=== PATIENT | male | born 1955 | race Caucasian/White ===

== ENCOUNTER 2019-06-16 16:45 | Emergency (ER) | payer MEDICAID ==
[~2019-06-16] VITALS: Ht 175.3 cm; Wt 56.7 kg
--- NOTE | 2019-06-16 16:46 | NUR ---
Patient TONO PYLE from [facility] [place], transferred to bed 10. RN evaluating patient at bedside.
[2019-06-16 16:49] VITALS: BP 152/94
--- NOTE | 2019-06-16 16:49 | NUR ---
Dr. Carrion is evaluating the patient at bedside.
--- NOTE | 2019-06-16 16:50 | NUR ---
XAVIERA BLS FROM [facility] TO RULE OUT APPENDICITIS. PT PRESENTS WITH RUQ AND RT RIB TENDERNESS/PAIN 02/22. BOWEL SOUNDS ACTIVE IN ALL 4 QUADRANTS. ABDOMEN SOFT AND FLAT. CRACKLES BILATERALLY AT LOWER BASE. DENIES N/V/D, PT AFEBRILE, INCONTINENT, NON-AMBULATORY. ALL 4 EXTREMETIES CONTRACTED. DAUGHTER BEDSIDE. VS STABLE. PT ALERT AND AWAKE. BED IS DOWN, LOCKED, BED RAIL X 2. MEDHX: CVA, HEMIPLEGIA, HEMIPARESIS, DYSPHAGIA, CHF, RT CRANIOTOMY, DM, HTN
--- NOTE | 2019-06-16 16:51 | NUR ---
MORE PMH-L SIDED HEMIPLEGIA AND CONVULSIONS
[2019-06-16] MEDS ORDERED: NACL 0.9% 1,000 ML IV SCH (16:55)
--- NOTE | 2019-06-16 16:59 | NUR ---
XRAY AT BEDSIDE
--- NOTE | 2019-06-16 17:08 | NUR ---
LAB AT BEDSIDE
--- NOTE | 2019-06-16 17:10 | NUR ---
US AT BEDSIDE
[2019-06-16 17:39] LABS: BASOPHILS % (AUTO) 0.5 % (0.0-2.0); EOSINOPHILS # (AUTO) 0.2 K/uL (0-0.4); EOSINOPHILS % (AUTO) 2.5 % (0.0-4.0); HEMATOCRIT 40.3 % (36-52); LYMPHOCYTES # (AUTO) 1.9 K/uL (2.0-11.5); LYMPHOCYTES % (AUTO) 21.5 % (20.5-51.1); MEAN CORPUSCULAR HEMOGLOBIN 30 pg (27-31); MEAN CORPUSCULAR HGB CONC 32 g/dL (33-37); MEAN CORPUSCULAR VOLUME 93.9 fL (80-94); MONOCYTES # (AUTO) 0.6 K/uL (0.8-1.0); MONOCYTES % (AUTO) 7.3 % (1.7-9.3); NEUTROPHILS % (AUTO) 68.2 % (42.2-75.2); PLATELET COUNT (AUTO) 213 K/uL (140-450); RED BLOOD CELL COUNT(AUTO) 4.29 MIL/uL (4.20-6.10); RED CELL DISTRIBUTION WIDTH 14.3 % (11.6-13.7); WHITE BLOOD COUNT (AUTO) 8.7 K/uL (4.8-10.8)
--- NOTE | 2019-06-16 18:05 | NUR ---
EMT AT BEDSIDE FOR EKG
[2019-06-16 18:06] LABS: ANION GAP 8.7 (8-16); CARBON DIOXIDE 31.8 mmol/L (21-32); CREATININE 0.8 mg/dL (0.7-1.3); POTASSIUM 4.5 mmol/L (3.5-5.1)
[2019-06-16 18:07] LABS: PROTHROMBIN TIME 9.7 secs (10.8-13.4)
[2019-06-16 18:09] LABS: ALBUMIN 2.3 g/dL (3.4-5.0); TOTAL BILIRUBIN 0.3 mg/dL (0.0-1.0)
--- NOTE | 2019-06-16 18:18 | NUR ---
# 14 FR Urinary catheter inserted utilizing sterile technique BY STUDENTS AND INSTRUCTOR. Immediate return of 300 ml YELLOW urine noted. Urine sample collected and sent to lab.
--- NOTE | 2019-06-16 18:36 | NUR ---
NADR TO BOLUS. 500 ML STILL TO ADMINISTER
--- NOTE | 2019-06-16 18:43 | NUR ---
TEMP 99.5 AXILLARY
[2019-06-16 18:44] LABS: APPEARANCE,URINE CLEAR (CLEAR); BILIRUBIN,URINE NEGATIVE (NEGATIVE); BLOOD, URINE NEGATIVE (NEGATIVE); COLOR,URINE YELLOW (YELLOW); LEUKOCYTE ESTERASE ,URINE NEGATIVE (NEGATIVE); NITRITE, URINE NEGATIVE (NEGATIVE); PH,URINE 6.5 (5.0-9.0); UGLUCOSE TRACE (NEGATIVE)
--- NOTE | 2019-06-16 18:47 | NUR ---
PTS DAUGHTER SIGNED CONSENT FOR CT WITH CONTRAST
--- NOTE | 2019-06-16 18:47 | NUR ---
PER OYSTER CULLER, WILL TRY TO USE IV IN PTS HAND DUE TO PTS ARM CONTRACTED
[2019-06-16 18:55] LABS: RBC,URINE 0 /HPF (0-5); WBC,URINE 0-5 /HPF (0-5)
[2019-06-16 18:56] LABS: HYALINE CASTS, URINE 0-10 /LPF (None Seen)
--- NOTE | 2019-06-16 19:15 | NUR ---
REPORT GIVEN TO GIA HIRSCH PT PENDING CT AT THIS TIME-CONSENT SIGNED
--- NOTE | 2019-06-16 19:16 | NUR ---
BEDSIDE REPORT RECIEVED FROM TORREY THOMAS. ASSUMED CARE AT THIS TIME.
--- NOTE | 2019-06-16 19:47 | NUR ---
PT SEEN WITH EYES CLOSED. BEDRAILS X2 UP. VSS. FAMILY AT BEDSIDE. WILL CONTINUE TO MONITOR. PT AWAITING CT SCAN.
--- NOTE | 2019-06-16 19:51 | NUR ---
OLVIN ELIZABETH, DAUGHTER- [phone], STATED SHE WOULD UPDATED WITH PT CONDITION REGARDING DISCHARGE OR ADMISSION.
--- NOTE | 2019-06-16 20:55 | NUR ---
PT TAKEN TO CT VIA [facility]
--- NOTE | 2019-06-16 21:07 | NUR ---
PT RETURNED FROM CT VIA [facility]
--- NOTE | 2019-06-16 21:45 | NUR ---
PT BRIEF AND LINENS CHANGED. PT REPOSITONED FOR COMFORT. WILL CONTINUE TO MONITOR.
[2019-06-16] MEDS ORDERED: ATOR40TA PO (22:36)
[2019-06-16] MEDS ORDERED: KEP500 PO (22:36)
[2019-06-16] MEDS ORDERED: HEPA500056 SQ (22:36)
[2019-06-16] MEDS ORDERED: SENN-3 PO (22:36)
[2019-06-16] MEDS ORDERED: INSU-1163 SQ (22:36)
[2019-06-16] MEDS ORDERED: CARV6.25 PO (22:36)
[2019-06-16] MEDS ORDERED: LISI10TA11 PO (22:36)
[2019-06-16] MEDS ORDERED: BACL10TA4 PO (22:36)
[2019-06-16] MEDS ORDERED: QUET25TA PO (22:36)
[2019-06-16] MEDS ORDERED: ASPI-1718 PO (22:36)
[2019-06-16] MEDS ORDERED: INSU100I7 SQ (22:36)
--- NOTE | 2019-06-16 23:30 | NUR ---
PT REPOSTIONED FOR COMFORT. PT NOT COMPLAINING OF PAIN AT THIS TIME. VSS. WILL CONTINUE TO MONITOR.
--- NOTE | 2019-06-17 00:45 | NUR ---
PT SEEN WITH EYES CLOSED. VISIBLE CHEST RISE AND FALL NOTED. BEDRAILS X2 UP. BED IN LOCKED POSITION. WILL CONTINUE TO MONITOR.
[2019-06-17 01:36] VITALS: BP 109/61
--- NOTE | 2019-06-17 01:36 | NUR ---
Patient discharged with v/s stable. Written and verbal after care instructions given and explained. Patient alert, oriented and verbalized understanding of instructions. [facility]. All questions addressed prior to discharge. ID band removed. Patient advised to follow up with PMD. Rx of MIRALAX given. Patient educated on indication of medication including possible reaction and side effects. Opportunity to ask questions provided and answered.
--- NOTE | 2019-06-17 01:46 | NUR ---
CALLED [facility] AND SPOKE WITH MATTY TO NOTIFY THE FACILITY THAT PT IS EN ROUTE.
--- NOTE | 2019-06-17 02:10 | NUR ---
CALL MADE TO OLVIN, DAUGHTER TO INFORM HER THAT PT HAS BEEN TRANSFERRED BACK TO HIS FACILITY.
== END 2019-06-17 01:36 ==
LOC: MED 16:45
DX: R10.11 Right upper quadrant pain (principal); R07.81 Pleurodynia; E11.9 Type 2 diabetes mellitus without complications; I10 Essential (primary) hypertension; Z98.890 Other specified postprocedural states
CPT/HCPCS: 36415; 71045; 74177; 76700; 80053; 81001; 83605; 83880; 84484; 85025; 85610; 85730; 87040; 87086; 93005; 99284; C1758; J7030; Q0092; Q9967